=== PATIENT | female | born 1960 | race African-American/Black ===

== ENCOUNTER 2025-03-03 05:38 | Emergency (ER) | payer MEDICAID, SELFPAY ==
[~2025-03-03] VITALS: Ht 170.2 cm; Wt 73.0 kg
[2025-03-03 05:42] VITALS: O2SAT 99
[2025-03-03] MEDS ORDERED: MECLIZINE 25MG TABLET PO ONE (06:15)
[2025-03-03 06:31] LABS: BASOPHILS % 0.5 % (0.0-2.0); EOSINOPHILS % 1.1 % (0.0-5.0); HEMATOCRIT. 34.7 % (36.0-48.0); HEMOGLOBIN. 11.7 g/dL (12.0-16.0); LYMPHOCYTES % 38.0 % (20.0-50.0); MEAN PLATELET VOLUME 6.8 fl (7.4-10.4); MONOCYTES % 8.7 % (2.0-8.0); NEUTROPHILS % 51.7 % (40.0-76.0); PLATELET 332 x1000/uL (130-400); RED BLOOD CELL COUNT 4.00 mill/uL (4.2-5.4); RED CELL DISTRIBUTION WIDTH 14.8 % (11.6-14.6)
[2025-03-03 06:44] LABS: CREATININE 0.8 mg/dL (0.6-1.0)
[2025-03-03 06:45] LABS: TROPONIN I HIGH SENSITIVITY 5 ng/L (3.0-34); UREA NITROGEN BLOOD 15 mg/dL (9-23)
[2025-03-03] MEDS: ONDANSETRON HCL 4MG/2ML INJ IV ONE (06:47)
[2025-03-03] MEDS: MECLIZINE 25MG TABLET PO SCH (06:47)
[2025-03-03] MEDS: SODIUM CHLORIDE 0.9% 1,000 ML IV ONE ×2 (06:54→09:00)
[2025-03-03] MEDS ORDERED: ACETAMINOPHEN 325MG TABLET PO PRN ×2 (10:15)
[2025-03-03] MEDS ORDERED: DEXTROSE 50% WATER 50ML SYRINGE IV PRN (10:15)
[2025-03-03] MEDS ORDERED: ONDANSETRON HCL 4MG/2ML INJ IV PRN (10:15)
[2025-03-03] MEDS ORDERED: CLONIDINE 0.1MG TABLET PO PRN (10:15)
[2025-03-03] MEDS ORDERED: HYDR25TA PO (10:31)
[2025-03-03 10:57] LABS: ASPARTATE AMINOTRANSFERASE 21 IU/L (<34); BILIRUBIN DIRECT 0.2 mg/dL (<=3.0); BILIRUBIN TOTAL 0.8 mg/dL (0.1-1.0); PHOSPHORUS 1.8 mg/dL (2.5-4.9); PROTEIN TOTAL 6.4 g/dL (6.0-8.3)
[2025-03-03 11:00] LABS: T4 FREE 1.47 ng/dL (0.89-1.76)
[2025-03-03 11:29] VITALS: BP 176/74; PULSE 54; RESP 18; TEMP 36.4; O2SAT 100
[2025-03-03] MEDS ORDERED: BLOOD SUGAR DIAGNOSTIC STRIP TEST SCH (13:00)
[2025-03-03] MEDS ORDERED: INSULIN LISPRO 100 UNITS/ML SUBCUT SCH (13:20)
== END 2025-03-03 11:45 | disposition short-term general hospital (02) ==
LOC: ER 05:38 → CANBEDREQ 09:53 → ER 11:45
DX: R42 Dizziness and giddiness (principal); E08.9 Diabetes mellitus due to underlying condition without complications; I10 Essential (primary) hypertension; I16.0 Hypertensive urgency; Z79.899 Other long term (current) drug therapy
CPT/HCPCS: 80076; 80048; 83036; 84439; 83735; 84100; 84443; 85025; 84484; 36415; 71045; 70450; 93005; 96361; 96374; 99285; J8597; J2405; J7030; Z7610